=== PATIENT | female | born 2000 | race Caucasian/White ===

== ENCOUNTER 2022-03-02 23:04 | Emergency (ER) | payer MEDICAID ==
[~2022-03-02] VITALS: Ht 160 cm; Wt 54.5 kg
[~2022-03-02 23:04] MED LIST: ZOF4T PO
[2022-03-02 23:10] VITALS: BP 117/70
[2022-03-02] MEDS ORDERED: metoclopramide 5 mg/ml inj IV ONE (23:20)
[2022-03-02] MEDS ORDERED: acetaminophen 325mg tablet PO ONE (23:20)
[2022-03-02] MEDS ORDERED: diphenhydrAMINE 50 mg/ml inj IV ONE (23:20)
== END 2022-03-03 00:22 | disposition home or self-care (01) ==
LOC: ER 23:05
DX: S06.0X0A Concussion without loss of consciousness, initial encounter (principal); R51.9 Headache, unspecified; Z88.1 Allergy status to other antibiotic agents; Z88.5 Allergy status to narcotic agent; Z88.6 Allergy status to analgesic agent; W50.0XXA Accidental hit or strike by another person, initial encounter; Y93.67 Activity, basketball; Y92.89 Other specified places as the place of occurrence of the external cause; Y99.8 Other external cause status
CPT/HCPCS: 96374; 96375; 99284; J1200; J2765

== ENCOUNTER 2023-04-02 22:30 | Emergency (ER) | payer MEDICAID ==
[~2023-04-02] VITALS: Ht 167.6 cm; Wt 59.1 kg
[2023-04-02 22:50] VITALS: BP 123/89; PULSE 88; RESP 17; TEMP 97.5; O2SAT 100
== END 2023-04-03 00:18 | disposition left against medical advice (07) ==
LOC: ER 22:31
DX: S61.213A Laceration without foreign body of left middle finger without damage to nail, initial encounter (principal); Z53.21 Procedure and treatment not carried out due to patient leaving prior to being seen by health care provider; W45.8XXA Other foreign body or object entering through skin, initial encounter; Y93.89 Activity, other specified; Y92.89 Other specified places as the place of occurrence of the external cause; Y99.8 Other external cause status
CPT/HCPCS: 99281